=== PATIENT | male | born 1955 | race American Indian/Alaskan Native ===

== ENCOUNTER 2016-11-01 21:05 | Emergency (ER) | payer SELFPAY ==
[2016-11-01 22:18] LABS: Basophils % (Auto) 0.4 % (0.0-1.8); Eosinophils % (Auto) 0.3 % (0.0-4.3); Hemoglobin 13.7 gm/dl (11.8-15.2); Mean Corpuscular HGB Conc 34 % (32-34); Mean Corpuscular Hemoglobin 35 pg (28-32); Mean Corpuscular Volume 102 fl (84-94); Platelet Count 200 K/mm3 (140-440); Red Blood Count 3.91 M/mm3 (3.65-5.03); Red Cell Distribution Width 13.8 % (13.2-15.2); White Blood Count 7.4 K/mm3 (4.5-11.0)
[2016-11-01 22:32] LABS: Anion Gap 22 mmol/L; BUN/Creatinine Ratio 8.75; Blood Urea Nitrogen 7 mg/dL (9-20); Calcium 9.3 mg/dL (8.4-10.2); Carbon Dioxide 25 mmol/L (22-30); Chloride 92.6 mmol/L (98-107); Glucose 94 mg/dL (75-100); Potassium 3.5 mmol/L (3.6-5.0); Sodium 136 mmol/L (137-145)
[2016-11-02 02:25] VITALS: BP 187/95
[2016-11-02 03:03] LABS: Albumin 4.4 g/dL (3.9-5); Albumin/Globulin Ratio 1.1 %; Bilirubin,Direct 0.3 mg/dL (0-0.2); Bilirubin,Indirect 0.9 mg/dL; Bilirubin,Total 1.2 mg/dL (0.1-1.2); Magnesium 1.7 mg/dL (1.7-2.3); Total Protein 8.4 g/dL (6.3-8.2)
[2016-11-02] MEDS ORDERED: CLEOCIN IM ONE (04:12)
--- NOTE | 2016-11-02 04:12 | Emergency Department Report ---
ED General Adult HPI - General Chief complaint: Dental/Oral Stated complaint: FACIAL SWELLING/SHAKING Time Seen by Provider: 11/02/16 03:58 Source: patient, family Mode of arrival: Ambulatory Limitations: No Limitations - History of Present Illness Initial comments: Patient reports that he is half and right facial pain at his gum from abscess 1 week. He reports swelling to his right face. 1 week. He is also reporting tremors 1 week. Patient drinks 3 beers a day and last time he drank was one day ago. He said he used to drink more heavily and he stopped one year ago. A shaky and is not related to him not drink at all call. He denies any pain to his extremities he just said he shakes at least 2 or 3 times a week. He reports facial pain to her right upper cheek at 4/10 and achy. That he has never been to the dentist. Denies any sore throat, drooling or difficulty breathing. When asked, patient said he does not have any medical problems. The pressure is 180/88 and he said his disease and pain. MD Complaint: facial swelling and gum pain facial swelling, gum pain and tremors Onset/Timin -: week(s) Location: face Radiation: non-radiation Severity scale (0 -10): 4 Quality: aching Consistency: constant Improves with: none Worsens with: eating Associated Symptoms: weakness (bilateral lower extremity), other (tremors to upper and lower extremities on and off). denies: confusion, chest pain, cough, diaphoresis, fever/chills, headaches, loss of appetite, malaise, nausea/vomiting , rash, seizure, shortness of breath, syncope Treatments Prior to Arrival: none - Related Data Previous Rx's Medication Instructions Recorded Last Taken Type Acetaminophen/Codeine [Tylenol 1 tab PO Q6H PRN #15 tab 11/02/16 Unknown Rx /Codeine # 3 tab] Ibuprofen [Motrin] 600 mg PO Q8H PRN #15 tablet 11/02/16 Unknown Rx Penicillin Vk [Veetids TAB] 500 mg PO TID #60 tablet 11/02/16 Unknown Rx Allergies Allergy/AdvReac Type Severity Reaction Status Date / Time No Known Allergies Allergy Verified 11/01/16 22:03 ED Review of Systems ROS: Stated complaint: FACIAL SWELLING/SHAKING Other details as noted in HPI Comment: All other systems reviewed and negative Constitutional: denies: chills, fever Eyes: denies: eye discharge ENT: dental pain, other (right facial swelling). denies: ear pain, throat pain , congestion Respiratory: no symptoms reported Cardiovascular: denies: chest pain, palpitations, edema, syncope Gastrointestinal: denies: abdominal pain, nausea, vomiting, diarrhea Musculoskeletal: denies: back pain, joint swelling, arthralgia, myalgia Skin: denies: rash Neurological: weakness (bilateral lower extremities), abnormal gait (on and off) , other (tremors to extremities). denies: headache, numbness, paresthesias, confusion, vertigo ED Past Medical Hx - Past Medical History Previous Medical History?: No - Surgical History Past Surgical History?: No - Family History Family history: no significant - Social History Smoking Status: Current Every Day Smoker Substance Use Type: Alcohol - Medications Home Medications: Home Medications Medication Instructions Recorded Confirmed Last Taken Type Acetaminophen/Codeine [Tylenol 1 tab PO Q6H PRN #15 tab 11/02/16 Unknown Rx /Codeine # 3 tab] Ibuprofen [Motrin] 600 mg PO Q8H PRN #15 tablet 11/02/16 Unknown Rx Penicillin Vk [Veetids TAB] 500 mg PO TID #60 tablet 11/02/16 Unknown Rx ED Physical Exam - General Limitations: No Limitations General appearance: alert, in no apparent distress - Head Head exam: Present: atraumatic, normocephalic, normal inspection - Eye Eye exam: Present: normal appearance, PERRL, EOMI. Absent: periorbital swelling , periorbital tenderness Pupils: Present: normal accommodation - ENT ENT exam: Present: mucous membranes moist, TM's normal bilaterally, normal external ear exam - Expanded ENT Exam Expanded Mouth exam: Present: other (right facial swelling at maxillary area. Tender to palpate.). Absent: drooling, trismus, muffled voice, tongue normal, tongue elevation, laceration Teeth exam: Present: dental caries, dental tenderness # (right upper tooth 2-3 and 4), gingival enlargement Throat exam: Positive: normal inspection. Negative: tonsillar erythema, tonsillomegaly, tonsillar exudate, R peritonsillar mass, L peritonsillar mass - Neck Neck exam: Present: normal inspection, full ROM. Absent: tenderness, meningismus, lymphadenopathy, thyromegaly - Respiratory Respiratory exam: Present: normal lung sounds bilaterally. Absent: respiratory distress, chest wall tenderness - Cardiovascular Cardiovascular Exam: Present: regular rate, normal rhythm, normal heart sounds - GI/Abdominal GI/Abdominal exam: Present: soft, normal bowel sounds. Absent: distended, tenderness, guarding, rebound, rigid - Extremities Exam Extremities exam: Present: normal inspection, full ROM, normal capillary refill , other (mild tremors noted to upper extremity. Patient ambulatory. +5/5 strength in all extremities. No clubbing, cyanosis or edema to extremities. No neurovascular compromise. +2 pulses in all extremities. No joint deformities, swelling or erythema. No ballottement of the joint.). Absent: tenderness, pedal edema, joint swelling, calf tenderness - Back Exam Back exam: Present: normal inspection, full ROM - Neurological Exam Neurological exam: Present: alert, oriented X3, normal gait, reflexes normal. Absent: motor sensory deficit - Expanded Neurological Exam Expanded Neurological exam: Present: tremor (mild tremor noticed to upper extremities). Absent: innattentive, memory loss-remote event, memory loss-recent event, ataxia , receptive aphasia, expressive aphasia, total aphasia, protecting the airway Patient oriented to: Present: person, place, time Speech: Present: fluid speech Cranial nerves: EOM's Intact: Normal, Gag Reflex: Normal, Tongue Deviation: Normal, Nystagmus: Normal, Facial Sensation: Normal Cerebellar function: Romberg: Normal Upper motor neuron: Pronator Drift: Normal, Sensory Extinction: Normal Sensory exam: Upper Extremity Light Touch: Normal, Upper Extremity Pin Prick: Normal, Upper Extremity Temperature: Normal, UE 2 Point Discrimination: Normal, Lower Extremity Light Touch: Normal, Lower Extremity Pin Prick: Normal, Lower Extremity Temperature: Normal, LE 2 Point Discrimination: Normal Motor strength exam: RUE: 5, LUE: 5, RLE: 5, LLE: 5 DTR: bicep (R): 2+, bicep (L): 2+, tricep (R): 2+, tricep (L): 2+, knee (R): 2+ , knee (L): 2+, ankle (R): 2+, ankle (L): 2+ Best Eye Response (Janki): (4) open spontaneously Best Motor Response (Janki): (6) obeys commands Best Verbal Response (Janki): (5) oriented [place] Total: 15 - Psychiatric Psychiatric exam: Present: normal affect, normal mood - Skin Skin exam: Present: warm, dry, intact, normal color. Absent: rash ED Course Vital Signs 11/01/16 11/02/16 22:16 02:18 Temperature 98.4 F 100.4 F H Pulse Rate 80 78 Respiratory 20 20 Rate Blood Pressure 180/88 187/95 [Right] O2 Sat by Pulse 100 99 Oximetry - Reevaluation(s) Reevaluation #1: 11/02/16 04:14 Patient to be given clindamycin 600 mg IM, 5/325 2 tablets by mouth and to have CT scan of the head. Reevaluation #2: 11/02/16 05:26 Patient stable no distress. ED Medical Decision Making - Lab Data Result diagrams: 11/01/16 22:04 11/01/16 22:04 Lab Results 11/01/16 11/01/16 11/01/16 Range/Units 22:04 22:04 22:04 WBC 7.4 (4.5-11.0) K/mm3 RBC 3.91 (3.65-5.03) M/mm3 Hgb 13.7 (11.8-15.2) gm/dl Hct 40.0 (35.5-45.6) % MCV 102 H (84-94) fl MCH 35 H (28-32) pg MCHC 34 (32-34) % RDW 13.8 (13.2-15.2) % Plt Count 200 (140-440) K/mm3 Lymph % (Auto) 17.0 (13.4-35.0) % [place] % (Auto) 10.3 H (0.0-7.3) % Eos % (Auto) 0.3 (0.0-4.3) % Baso % (Auto) 0.4 (0.0-1.8) % Lymph # 1.3 (1.2-5.4) K/mm3 [place] # 0.8 (0.0-0.8) K/mm3 Eos # 0.0 (0.0-0.4) K/mm3 Baso # 0.0 (0.0-0.1) K/mm3 Seg Neutrophils % 72.0 H (40.0-70.0) % Seg Neutrophils # 5.3 (1.8-7.7) K/mm3 Sodium 136 L (137-145) mmol/L Potassium 3.5 L (3.6-5.0) mmol/L Chloride 92.6 L (98-107) mmol/L Carbon Dioxide 25 (22-30) mmol/L Anion Gap 22 mmol/L BUN 7 L (9-20) mg/dL Creatinine 0.8 (0.8-1.5) mg/dL Estimated GFR > 60 ml/min BUN/Creatinine Ratio 8.75 % Glucose 94 (75-100) mg/dL Calcium 9.3 (8.4-10.2) mg/dL Magnesium 1.70 (1.7-2.3) mg/dL Total Bilirubin 1.20 (0.1-1.2) mg/dL Direct Bilirubin 0.3 H (0-0.2) mg/dL Indirect Bilirubin 0.9 mg/dL AST 72 H (5-40) units/L ALT 34 (7-56) units/L Alkaline Phosphatase 132 H (35-129) units/L Total Protein 8.4 H (6.3-8.2) g/dL Albumin 4.4 (3.9-5) g/dL Albumin/Globulin Ratio 1.1 % Plasma/Serum Alcohol (0-0.07) gm% 05/26/17 Range/Units 02:27 WBC (4.5-11.0) K/mm3 RBC (3.65-5.03) M/mm3 Hgb (11.8-15.2) gm/dl Hct (35.5-45.6) % MCV (84-94) fl MCH (28-32) pg MCHC (32-34) % RDW (13.2-15.2) % Plt Count (140-440) K/mm3 Lymph % (Auto) (13.4-35.0) % [place] % (Auto) (0.0-7.3) % Eos % (Auto) (0.0-4.3) % Baso % (Auto) (0.0-1.8) % Lymph # (1.2-5.4) K/mm3 [place] # (0.0-0.8) K/mm3 Eos # (0.0-0.4) K/mm3 Baso # (0.0-0.1) K/mm3 Seg Neutrophils % (40.0-70.0) % Seg Neutrophils # (1.8-7.7) K/mm3 Sodium (137-145) mmol/L Potassium (3.6-5.0) mmol/L Chloride (98-107) mmol/L Carbon Dioxide (22-30) mmol/L Anion Gap mmol/L BUN (9-20) mg/dL Creatinine (0.8-1.5) mg/dL Estimated GFR ml/min BUN/Creatinine Ratio % Glucose (75-100) mg/dL Calcium (8.4-10.2) mg/dL Magnesium (1.7-2.3) mg/dL Total Bilirubin (0.1-1.2) mg/dL Direct Bilirubin (0-0.2) mg/dL Indirect Bilirubin mg/dL AST (5-40) units/L ALT (7-56) units/L Alkaline Phosphatase (35-129) units/L Total Protein (6.3-8.2) g/dL Albumin (3.9-5) g/dL Albumin/Globulin Ratio % Plasma/Serum Alcohol < 0.01 (0-0.07) gm% - Radiology Data Radiology results: report reviewed CT of the head revealed no acute findings. Mild atrophy - Medical Decision Making ED course: Patient here complaining of tooth abscess and tremors 1 week to his extremities. He T scan of the head revealed no acute findings just mild atrophy. As discussed with patient. PT given [place] 5/325 mg 2 tablets in the emergency room along with clindamycin 600 mg IM for tooth Cellulitis. I discussed the patient in length that he will need to follow-up at [facility] and if needed he will be referred to a neurologist for further investigation of tremors. Patient does not have a primary care doctor nor does he have a dentist. I also discussed with him that I'll put him on antibiotic and he is given a need to take antibiotic until they are all gone and he will need to call dentist this morning to schedule an appointment for poor dental care. He voices understanding of discharge diagnosis and treatment plan and need to call to schedule follow-up visit. Discharged home with his family with prescription for penicillin VK, Tylenol No. 3 and Motrin. Also encouraged to stop drinking. Discussed his lab result with him and told him that his liver enzymes were elevated and he will need to also follow-up with financial services intern for further evaluation. Critical care attestation.: If time is entered above; I have spent that time in minutes in the direct care of this critically ill patient, excluding procedure time. ED Disposition Clinical Impression: Tooth abscess, Toothache, Gingivitis, Dental caries, Elevated blood-pressure reading without diagnosis of hypertension, Limb tremor, Liver enzyme elevation Disposition: DISCHARGED TO HOME OR SELFCARE Is pt being admited?: No Condition: Stable Instructions: Dental Abscess (ED), Dental Caries (ED), Toothache (ED), Gingivitis (ED), Hypertension (ED) Additional Instructions: Please follow up with some [facility] as discussed for evaluation of tremors and you might need to be referred to an urologist for further studies. Take antibiotic as prescribed Please follow up with dentist as discussed You have tremors that comes and goes and he will need to follow up with primary care physician at [facility] who will more than likely refer you to a neurologist. Please stop drinking alcohol. Increase your fluid intake. Please take your blood pressure and keep her long and take to primary care visit with you. liver enzymes are elevated and you will need to be seen by a financial services intern for further evaluation Prescriptions: Acetaminophen/Codeine [Tylenol /Codeine # 3 tab] 1 tab PO Q6H PRN #15 tab PRN Reason: Toothache Ibuprofen [Motrin] 600 mg PO Q8H PRN #15 tablet PRN Reason: Pain Penicillin Vk [Veetids TAB] 500 mg PO TID #60 tablet Referrals: [facility] [Outside] - 11/06/16 [facility] [Outside] - 11/06/16 SANJEEV GUERRERO MD [Staff Physician] - 11/06/16 [facility] [Provider Group] - 11/06/16 Forms: Accompanied Note, Work/School Release Form(ED)
[2016-11-02] MEDS ORDERED: NORCO 5/325 PO ONE (04:13)
--- NOTE | 2016-11-02 04:56 | Cat Scan Report ---
FINAL REPORT PROCEDURE: CT HEAD/BRAIN WO CON TECHNIQUE: Computerized tomography of the head was performed without contrast material. HISTORY: new onset tremors COMPARISON: No prior studies are available for comparison. FINDINGS: Skull and scalp: Normal. Paranasal sinuses: Minimal soft tissue swelling over the right cheek region. The paranasal sinuses are clear.. Ventricles and subarachnoid spaces: Normal. Cerebrum: No evidence of hemorrhage, acute infarction or mass. Mild atrophy.. Cerebellum and brainstem: No evidence of hemorrhage, acute infarction or mass. Vasculature: Normal. Comments: None. IMPRESSION: There is no evidence of an acute intracranial process. Mild atrophy.
== END 2016-11-02 06:12 | disposition home or self-care (01) ==
LOC: ED 21:05
DX: K04.7 Periapical abscess without sinus (principal); K05.10 Chronic gingivitis, plaque induced; R25.1 Tremor, unspecified; R94.5 Abnormal results of liver function studies; F17.200 Nicotine dependence, unspecified, uncomplicated
CPT/HCPCS: 36415; 70450; 80048; 80074; 83735; 85025; 96372; 99284; G0480; 80320